=== PATIENT | female | born 1970 | race Two or more races ===

== ENCOUNTER 2016-08-07 18:16 | Inpatient (IN) | payer MEDICAID ==
[~2016-08-07] VITALS: Ht 154.9 cm; Wt 50.8 kg
[2016-08-07 19:45] VITALS: BP 107/55
[2016-08-07] MEDS ORDERED: MEDROXYPROGESTERONE 2.5 MG ORAL ONE (20:00)
[2016-08-07 20:01] LABS: PROTHROMBIN TIME 10.1 SEC (9.30-11.50)
[2016-08-07 20:05] LABS: ALANINE AMINOTRANSFERASE 11 U/L (3-33); ALBUMIN/GLOBULIN RATIO 1.5 (1.0-2.7); ANION GAP 17 (5-15); ASPARTATE AMINO TRANSFERASE 14 U/L (5-40); CALCIUM 8.6 mg/dL (8.6-10.2); CARBON DIOXIDE 22 mEQ/L (20-30); CHLORIDE 98 mEQ/L (98-107); CREATININE 0.4 mg/dL (0.5-0.9); GLOMERULAR FILTRATION RATE > 60 mL/min (>60); HEMOLYSIS 3; POTASSIUM 3.4 mEQ/L (3.4-4.9); SODIUM 137 mEQ/L (135-145); TOTAL PROTEIN 6.9 g/dL (6.6-8.7)
[2016-08-07] MEDS ORDERED: medroxyPROGESTERone 10mg tab ONE (20:15)
[2016-08-07 20:19] LABS: MEAN CORPUSCULAR HEMOGLOBIN 17.4 PG (27.0-31.0); MEAN CORPUSCULAR HGB CONC 29.4 G/DL (32.0-36.0); MEAN CORPUSCULAR VOLUME 59 FL (80-99); MEAN PLATELET VOLUME 6.8 FL (6.5-10.1); PLATELET COUNT 229 K/UL (150-450); RED BLOOD COUNT 2.75 M/UL (4.20-5.40); RED CELL DISTRIBUTION WIDTH 14.4 % (11.6-14.8); WHITE BLOOD COUNT 6.8 K/UL (4.8-10.8)
[2016-08-07] MEDS: medroxyPROGESTERone 10mg tab ORAL SCH (20:53)
[2016-08-07 21:18] LABS: APPEARANCE,URINE SLIGHTLY CLOUDY; KETONES,URINE NEGATIVE (NEGATIVE); LEUKOCYTE ESTERASE ,URINE 2+ (NEGATIVE); NITRITE,URINE NEGATIVE (NEGATIVE); PH,URINE 6 (4.5-8.0); PROTEIN,URINE 3+ (NEGATIVE); UROBILINOGEN,URINE NORMAL MG/DL (0.0-1.0)
[2016-08-07 21:33] LABS: BAND NEUTROPHILS % (MANUAL) 1 % (0-8); EOSINOPHILS % (MANUAL) 3 % (0-3); LYMPHOCYTES % (MANUAL) 20 % (20-45); NEUTROPHILS % (MANUAL) 72 % (45-75); TOTAL CELLS COUNTED 100
[2016-08-07 21:34] LABS: ANISOCYTOSIS 2+; HYPOCHROMASIA 2+
[2016-08-07 21:35] LABS: BASOPHILS % (MANUAL) 0 % (0-2); MICROCYTES 3+; OVALOCYTES 1+; PLATELET ESTIMATE ADEQUATE; PLATELET MORPHOLOGY NORMAL
[2016-08-07] MEDS ORDERED: VITAMIN K100 MC1 PO (21:37)
--- NOTE | 2016-08-07 21:44 | Emergency Room Report ---
History of Present Illness General Chief Complaint: Syncope Source: Patient, EMS Present Illness HPI Patient is a 45-year-old female who presented after having a syncopal episode. Patient reports having recent episodes of heavy vaginal bleeding. She been bleeding for several weeks. Patient had previously been told she had fibroid uterus. She had been taking vitamin K supplementation. She had not been vomiting. She reported feeling somewhat lightheaded. Allergies: Coded Allergies: No Known Allergies (Unverified , 08/07/16) Patient History Past Medical History: see triage record Reviewed Nursing Documentation: PMH: Agreed, PSxH: Agreed Nursing Documentation-PMH Past Medical History: No History, Except For Hx Hypertension: No - POLIO Hx Seizures: Yes Review of Systems All Other Systems: negative except mentioned in HPI Physical Exam Vital Signs Date Time Temp Pulse Resp B/P Pulse Ox O2 Delivery O2 Flow Rate FiO2 08/07/16 18:06 98.1 76 16 123/77 99 Room Air Sp02 EP Interpretation: reviewed, normal General Appearance: normal inspection, well appearing, no apparent distress, alert, GCS 15, non-toxic Head: atraumatic Eyes: bilateral eye conjunctivae pale ENT: normal ENT inspection, hearing grossly normal, normal voice Neck: normal inspection, full range of motion, supple, no bony tend Respiratory: normal inspection, lungs clear, normal breath sounds, no respiratory distress, no retraction, no wheezing Cardiovascular #1: regular rate, rhythm, no edema Gastrointestinal: normal inspection, normal bowel sounds, non tender, soft, no guarding, no hernia Genitourinary: no CVA tenderness, other - moderate vaginal bleeding Musculoskeletal: normal inspection, back normal, normal range of motion Neurologic: normal inspection, alert, oriented x3, responsive, telecommunications engineer III-XII nml as tested, speech normal Psychiatric: normal inspection, judgement/insight normal, mood/affect normal Skin: normal inspection, normal color, no rash, pallor Medical Decision Making Diagnostic Impression: Primary Impression: Syncope Additional Impressions: Anemia Fibroid uterus ER Course Patient presented for syncope. lDifferential diagnosis included but not limited to syncope versus seizure. Potential causes for syncope included arrhythmia, dehydration, acute coronary syndrome, severe anemia, pulmonary embolus. Because of complexity of patient's case laboratory testing and imaging studies were ordered. Laboratory testing was notable for markedly anemia with a hemoglobin of 4.8. The patient noted to have normal coagulation studies. Patient was type and crossed for blood and patient was consented for blood. The pelvic ultrasound was ordered and results are currently pending. test was negative. Dr.Kinishka fox for [facility] was contacted for inpatient management. Labs Test 08/07/16 19:32 08/07/16 20:47 White Blood Count 6.8 K/UL (4.8-10.8) Red Blood Count 2.75 M/UL (4.20-5.40) Hemoglobin 4.8 G/DL (12.0-16.0) Hematocrit 16.3 % (37.0-47.0) Mean Corpuscular Volume 59 FL (80-99) Mean Corpuscular Hemoglobin 17.4 PG (27.0-31.0) Mean Corpuscular Hemoglobin Concent 29.4 G/DL (32.0-36.0) Red Cell Distribution Width 14.4 % (11.6-14.8) Platelet Count 229 K/UL (150-450) Mean Platelet Volume 6.8 FL (6.5-10.1) Neutrophils (%) (Auto) % (45.0-75.0) Lymphocytes (%) (Auto) % (20.0-45.0) Monocytes (%) (Auto) % (1.0-10.0) Eosinophils (%) (Auto) % (0.0-3.0) Basophils (%) (Auto) % (0.0-2.0) Differential Total Cells Counted 100 Neutrophils % (Manual) 72 % (45-75) Lymphocytes % (Manual) 20 % (20-45) Monocytes % (Manual) 4 % (1-10) Eosinophils % (Manual) 3 % (0-3) Basophils % (Manual) 0 % (0-2) Band Neutrophils 1 % (0-8) Platelet Estimate Adequate Platelet Morphology Normal Hypochromasia 2+ Anisocytosis 2+ Microcytosis 3+ Ovalocytes 1+ Prothrombin Time 10.1 SEC (9.30-11.50) Prothromb Time International Ratio 1.0 (0.9-1.1) Activated Partial Thromboplast Time 18 SEC (23-33) Sodium Level 137 mEQ/L (135-145) Potassium Level 3.4 mEQ/L (3.4-4.9) Chloride Level 98 mEQ/L (98-107) Carbon Dioxide Level 22 mEQ/L (20-30) Anion Gap 17 (5-15) Blood Urea Nitrogen 5 mg/dL (7-23) Creatinine 0.4 mg/dL (0.5-0.9) Estimat Glomerular Filtration Rate > 60 mL/min (>60) Glucose Level 116 mg/dL (74-106) Calcium Level 8.6 mg/dL (8.6-10.2) Total Bilirubin 0.3 mg/dL (0.0-1.2) Aspartate Amino Transf (AST/SGOT) 14 U/L (5-40) Alanine Aminotransferase (ALT/SGPT) 11 U/L (3-33) Alkaline Phosphatase 57 U/L (35-104) Total Protein 6.9 g/dL (6.6-8.7) Albumin 4.2 g/dL (3.5-5.2) Globulin 2.7 g/dL Albumin/Globulin Ratio 1.5 (1.0-2.7) Urine Color Red Urine Appearance Slightly cloudy Urine pH 6 (4.5-8.0) Urine Specific [place] 1.010 (1.005-1.035) Urine Protein 3+ (NEGATIVE) Urine Glucose (UA) Negative (NEGATIVE) Urine Ketones Negative (NEGATIVE) Urine Occult Blood 5+ (NEGATIVE) Urine Nitrite Negative (NEGATIVE) Urine Bilirubin Negative (NEGATIVE) Urine Urobilinogen Normal MG/DL (0.0-1.0) Urine Leukocyte Esterase 2+ (NEGATIVE) Urine HCG, Qualitative Negative Last Vital Signs Date Time Temp Pulse Resp B/P Pulse Ox O2 Delivery O2 Flow Rate FiO2 08/07/16 19:45 98.1 72 16 107/55 100 Room Air Status: unchanged Disposition: ADMITTED INPATIENT Condition: Serious Referrals: NOT CHOSEN LIBRA/,REFERRING (PCP) Louie Goff Aug 07, 2016 21:44
[2016-08-07 21:45] VITALS: BP 110/60
[2016-08-07 21:45] LABS: BACTERIA,URINE FEW /HPF; RBC,URINE 60-80 /HPF (0 - 2); SQUAMOUS EPITHELIAL CELL,UR FEW /LPF (NONE/OCC)
[2016-08-07 23:10] VITALS: BP 100/58
[2016-08-08] VITALS (8 sets, daily range): BP systolic 93–118; BP diastolic 49–72
[2016-08-08] MEDS ORDERED: Norco 5mg/325mg tab ORAL PRN (05:45)
[2016-08-08] MEDS ORDERED: Norco 10mg/325mg tab ORAL PRN (05:45)
[2016-08-08] MEDS: medroxyPROGESTERone 10mg tab ORAL SCH (09:00)
[2016-08-08 10:10] LABS: MEAN CORPUSCULAR HEMOGLOBIN 20.6 PG (27.0-31.0); MEAN CORPUSCULAR HGB CONC 30.8 G/DL (32.0-36.0); MEAN CORPUSCULAR VOLUME 67 FL (80-99); MEAN PLATELET VOLUME 7.3 FL (6.5-10.1); PLATELET COUNT 253 K/UL (150-450); RED BLOOD COUNT 3.65 M/UL (4.20-5.40); RED CELL DISTRIBUTION WIDTH 21.9 % (11.6-14.8)
--- NOTE | 2016-08-08 10:20 | Diagnostic Imaging Report ---
Indication: Pelvic pain and weakness. Negative urine test Technique: Transabdominal and transvaginal images Comparison: None Findings: Uterus is retroverted. It measures 11.8 cm length by 5.1 cm AP. Endometrium is thickened, measuring 17 mm. Considerable fluid is seen within the lower endometrium and especially endocervical canal, with some associated debris. Multiple uterine fibroids are noted, including a fibroid within the lower uterine segment or cervix. The left ovary measures 2.9 cm in length. It contains multiple large follicles. The right ovary measures 2.1 cm in length. There is trace free cul-de-sac fluid. Impression: Uterine fibroids Considerable debris and fluid within the lower uterine endometrium and endocervical canal, nonspecific, could represent old blood given stated clinical history of bleeding Thickened endometrium, nonspecific. Free pelvic fluid, presumed physiologic Prominent left ovarian follicles. Negative for adnexal mass
[2016-08-08 10:26] LABS: ANION GAP 13 (5-15); CALCIUM 8.4 mg/dL (8.6-10.2); CARBON DIOXIDE 24 mEQ/L (20-30); CHLORIDE 103 mEQ/L (98-107); CREATININE 0.4 mg/dL (0.5-0.9); GLOMERULAR FILTRATION RATE > 60 mL/min (>60); HEMOLYSIS 2; POTASSIUM 3.3 mEQ/L (3.4-4.9); SODIUM 140 mEQ/L (135-145)
[2016-08-08 10:50] LABS: ANISOCYTOSIS 3+; BAND NEUTROPHILS % (MANUAL) 0 % (0-8); BASOPHILS % (MANUAL) 1 % (0-2); EOSINOPHILS % (MANUAL) 4 % (0-3); HYPOCHROMASIA 3+; LYMPHOCYTES % (MANUAL) 31 % (20-45); NEUTROPHILS % (MANUAL) 57 % (45-75); PLATELET ESTIMATE ADEQUATE; TOTAL CELLS COUNTED 100
[2016-08-08 10:51] LABS: MICROCYTES 3+; PLATELET MORPHOLOGY NORMAL; POIKILOCYTOSIS 1+
[2016-08-08] MEDS ORDERED: KCl 10% 40mEq/30ml liquid ORAL ONE (13:00)
--- NOTE | 2016-08-08 15:07 | History and Physical ---
History of Present Illness General Date patient seen: Aug 08, 2016 Time patient seen: 15:07 Reason for Hospitalization: Vaginal bleeding, syncope Present Illness HPI 45y/o female with no sig pmh who presents with vaginal bleeding and syncope. Patient reports having recent episodes of heavy vaginal bleeding. She been bleeding for several weeks. Patient had previously been told she had fibroid uterus. She had been taking vitamin K supplementation. She had not been vomiting. She reported feeling somewhat lightheaded. Denies f/c, n/v, d/c, chest pain, SOB. In ED, pt with hgb 4.8. Given 2U pRBCs. Software Development Coordinator consulted. Pt started on Provera. Allergies: Coded Allergies: No Known Allergies (Unverified , 08/07/16) Medication History Discontinued Medications Phytonadione (Vitamin K), 100 MCG PO, (Reported) Discontinued Reason: Therapy completed Patient History Healthcare decision maker Resuscitation status Full Code Advanced Directive on File No Family History Family History: Patient reports no known family medical history. Social History Social History: (1) No significant social history Review of Systems ROS Narrative CONSTITUTIONAL: No weight loss, fever, chills, weakness or fatigue. HEENT: Eyes: No visual loss, blurred vision, double vision or yellow sclerae. Ears, Nose, Throat: No hearing loss, sneezing, congestion, runny nose or sore throat. SKIN: No rash or itching. CARDIOVASCULAR: No chest pain, chest pressure or chest discomfort. No palpitations or edema. RESPIRATORY: No shortness of breath, cough or sputum. GASTROINTESTINAL: No anorexia, nausea, vomiting or diarrhea. No abdominal pain or blood. NEUROLOGICAL: No headache, paralysis, ataxia, numbness or tingling in the extremities. No change in bowel or bladder control. +dizziness, +syncope MUSCULOSKELETAL: No muscle, back pain, joint pain or stiffness. HEMATOLOGIC: No anemia, bleeding or bruising. LYMPHATICS: No enlarged nodes. No history of splenectomy. PSYCHIATRIC: No history of depression or anxiety. ENDOCRINOLOGIC: No reports of sweating, cold or heat intolerance. No polyuria or polydipsia. ALLERGIES: No history of asthma, hives, eczema or rhinitis. Physical Exam Physical Exam Narrative General: alert, cooperative, no distress, appears stated age Head: normocephalic, without obvious abnormality, atraumatic Eyes: conjunctivae/corneas clear. PERRL, EOM's intact Throat: lips, mucosa, and tongue normal. MMM Neck: supple, symmetrical, trachea midline, and no JVD Lungs: clear to auscultation bilaterally Heart: regular rate and rhythm, S1, S2 normal, no murmur, click, rub or gallop Abdomen: soft, non-tender, non-distended, bowel sounds normal; no masses or organomegaly Extremities: extremities normal, atraumatic, no cyanosis or edema Pulses: 2+ and symmetric Skin: skin color, texture, turgor normal; no rashes or lesions Neurologic: grossly normal, no focal deficits Last 24 Hour Vital Signs Date Time Temp Pulse Resp B/P Pulse Ox O2 Delivery O2 Flow Rate FiO2 08/08/16 12:00 63 08/08/16 08:00 62 08/08/16 08:00 97.3 61 21 93/58 100 Room Air 08/08/16 04:15 98.2 63 18 105/68 99 Room Air 08/08/16 03:50 57 08/08/16 02:34 66 08/08/16 02:30 97.2 66 18 118/72 100 Room Air 08/08/16 02:09 98.3 68 15 99/49 100 Room Air 08/08/16 01:55 98.3 68 15 08/08/16 01:40 98.3 68 15 99/49 100 Room Air 08/08/16 01:10 98.6 68 14 105/57 99 Room Air 08/08/16 01:10 98.6 68 14 08/08/16 00:55 98.4 70 12 08/08/16 00:55 98.4 70 12 109/58 100 Room Air 08/08/16 00:30 98.3 73 16 08/07/16 23:45 98.2 70 14 08/07/16 23:10 98.4 71 17 100/58 100 Room Air 08/07/16 22:40 98.4 74 12 08/07/16 22:25 98.4 73 15 08/07/16 21:45 98.4 73 15 110/60 100 Room Air 08/07/16 19:45 98.1 72 16 107/55 100 Room Air 08/07/16 18:06 98.1 76 16 123/77 99 Room Air Intake and Output 08/07/16 08/08/16 19:00 07:00 Intake Total 500 ml Output Total 750 ml Balance -250 ml Blood Product 500 ml Output Urine Total 750 ml # Voids 2 Laboratory Tests Test 08/07/16 19:32 08/07/16 20:47 08/08/16 09:40 White Blood Count 6.8 K/UL (4.8-10.8) 6.0 K/UL (4.8-10.8) Red Blood Count 2.75 M/UL (4.20-5.40) L 3.65 M/UL (4.20-5.40) L Hemoglobin 4.8 G/DL (12.0-16.0) *L 7.5 G/DL (12.0-16.0) #L Hematocrit 16.3 % (37.0-47.0) L 24.4 % (37.0-47.0) #L Mean Corpuscular Volume 59 FL (80-99) L 67 FL (80-99) #L Mean Corpuscular Hemoglobin 17.4 PG (27.0-31.0) L 20.6 PG (27.0-31.0) L Mean Corpuscular Hemoglobin Concent 29.4 G/DL (32.0-36.0) L 30.8 G/DL (32.0-36.0) L Red Cell Distribution Width 14.4 % (11.6-14.8) 21.9 % (11.6-14.8) H Platelet Count 229 K/UL (150-450) 253 K/UL (150-450) Mean Platelet Volume 6.8 FL (6.5-10.1) 7.3 FL (6.5-10.1) Neutrophils (%) (Auto) % (45.0-75.0) % (45.0-75.0) Lymphocytes (%) (Auto) % (20.0-45.0) % (20.0-45.0) Monocytes (%) (Auto) % (1.0-10.0) % (1.0-10.0) Eosinophils (%) (Auto) % (0.0-3.0) % (0.0-3.0) Basophils (%) (Auto) % (0.0-2.0) % (0.0-2.0) Differential Total Cells Counted 100 100 Neutrophils % (Manual) 72 % (45-75) 57 % (45-75) Lymphocytes % (Manual) 20 % (20-45) 31 % (20-45) Monocytes % (Manual) 4 % (1-10) 7 % (1-10) Eosinophils % (Manual) 3 % (0-3) 4 % (0-3) H Basophils % (Manual) 0 % (0-2) 1 % (0-2) Band Neutrophils 1 % (0-8) 0 % (0-8) Platelet Estimate Adequate Adequate Platelet Morphology Normal Normal Hypochromasia 2+ 3+ Anisocytosis 2+ 3+ Microcytosis 3+ 3+ Ovalocytes 1+ Prothrombin Time 10.1 SEC (9.30-11.50) Prothromb Time International Ratio 1.0 (0.9-1.1) Activated Partial Thromboplast Time 18 SEC (23-33) L Sodium Level 137 mEQ/L (135-145) 140 mEQ/L (135-145) Potassium Level 3.4 mEQ/L (3.4-4.9) 3.3 mEQ/L (3.4-4.9) L Chloride Level 98 mEQ/L (98-107) 103 mEQ/L (98-107) Carbon Dioxide Level 22 mEQ/L (20-30) 24 mEQ/L (20-30) Anion Gap 17 (5-15) H 13 (5-15) Blood Urea Nitrogen 5 mg/dL (7-23) L 3 mg/dL (7-23) L Creatinine 0.4 mg/dL (0.5-0.9) L 0.4 mg/dL (0.5-0.9) L Estimat Glomerular Filtration Rate > 60 mL/min (>60) > 60 mL/min (>60) Glucose Level 116 mg/dL (74-106) H 125 mg/dL (74-106) H Calcium Level 8.6 mg/dL (8.6-10.2) 8.4 mg/dL (8.6-10.2) L Total Bilirubin 0.3 mg/dL (0.0-1.2) Aspartate Amino Transf (AST/SGOT) 14 U/L (5-40) Alanine Aminotransferase (ALT/SGPT) 11 U/L (3-33) Alkaline Phosphatase 57 U/L (35-104) Total Protein 6.9 g/dL (6.6-8.7) Albumin 4.2 g/dL (3.5-5.2) Globulin 2.7 g/dL Albumin/Globulin Ratio 1.5 (1.0-2.7) Urine Color Red Urine Appearance Slightly cloudy Urine pH 6 (4.5-8.0) Urine Specific [place] 1.010 (1.005-1.035) Urine Protein 3+ (NEGATIVE) H Urine Glucose (UA) Negative (NEGATIVE) Urine Ketones Negative (NEGATIVE) Urine Occult Blood 5+ (NEGATIVE) H Urine Nitrite Negative (NEGATIVE) Urine Bilirubin Negative (NEGATIVE) Urine Urobilinogen Normal MG/DL (0.0-1.0) Urine Leukocyte Esterase 2+ (NEGATIVE) H Urine RBC 60-80 /HPF (0 - 2) H Urine WBC 5-10 /HPF (0 - 2) H Urine Squamous Epithelial Cells Few /LPF (NONE/OCC) Urine Bacteria Few /HPF (NONE) Urine HCG, Qualitative Negative Poikilocytosis 1+ Height (Feet): 5 Height (Inches): 1.00 Weight (Pounds): 112 Medications Current Medications Medications (Trade) Dose Ordered Sig/René Route PRN Reason Start Time Stop Time Status Last Admin Dose Admin Acetaminophen (Tylenol) 650 mg Q6H PRN ORAL Mild Pain/Temp > 100.5 08/08/16 05:45 09/07/16 05:44 Acetaminophen/ Hydrocodone Bitart ([place] 10/325) 1 ea Q4H PRN ORAL Severe Pain (Pain Scale 7-10) 08/08/16 05:45 08/15/16 05:44 Acetaminophen/ Hydrocodone Bitart ([place] 5/325) 1 tab Q4H PRN ORAL Moderate Pain (Pain Scale 4-6) 08/08/16 05:45 08/15/16 05:44 Dextrose (Dextrose 50%) STAT PRN IV Hypoglycemia 08/08/16 05:45 09/07/16 05:44 Medroxyprogesterone Acetate (Provera) 10 mg DAILY ORAL 08/07/16 20:15 09/06/16 20:14 08/08/16 09:00 Assessment/Plan Problem List: (1) Acute blood loss anemia ICD Codes: D62 - Acute posthemorrhagic anemia SNOMED: 772979761 (2) Vagina bleeding ICD Codes: N93.9 - Abnormal uterine and vaginal bleeding, unspecified SNOMED: 147839454, 747288823 (3) Uterine fibroid ICD Codes: D25.9 - Leiomyoma of uterus, unspecified SNOMED: 24019649 Status: stable Assessment/Plan Admit inpt Software Development Coordinator consulted in ED Started on Provera x 10d s/p 2U pRBCs w/ good response Trend CBC Check Fe panel, ferritin Consider Fannie Caballero M.D. Aug 08, 2016 15:07
[2016-08-08] MEDS ORDERED: MEDROXYPROGESTER5 MG ORAL (15:28)
--- NOTE | 2016-08-08 15:29 | Discharge Instructions ---
Discharge Instructions Discharge Instructions Follow up with: Gynecology in 1 week Call MD/Return to Hospital if: increasing bleeding, dizziness, chest pain, SOB Diet: regular Resume Normal Activity?: Yes Activity: resume normal activities For Congestive Heart Failure Reminder Report to your physician any weight gain of 5 pounds or more in one week. Fannie Cabral M.D. Aug 08, 2016 15:29
[2016-08-08 18:17] LABS: MEAN CORPUSCULAR HEMOGLOBIN 20.3 PG (27.0-31.0); MEAN CORPUSCULAR HGB CONC 30.3 G/DL (32.0-36.0); MEAN CORPUSCULAR VOLUME 67 FL (80-99); MEAN PLATELET VOLUME 7.7 FL (6.5-10.1); PLATELET COUNT 242 K/UL (150-450); RED BLOOD COUNT 3.57 M/UL (4.20-5.40); RED CELL DISTRIBUTION WIDTH 21.2 % (11.6-14.8); WHITE BLOOD COUNT 6.4 K/UL (4.8-10.8)
[2016-08-08 18:31] LABS: HEMOLYSIS 2; IRON 18 ug/dL (37-145); TOTAL IRON BINDING CAPACITY 338 ug/dL (250-400)
[2016-08-08 18:41] LABS: FERRITIN 11 ng/mL (13-150)
[2016-08-08 19:18] LABS: EOSINOPHILS % (MANUAL) 4 % (0-3); LYMPHOCYTES % (MANUAL) 42 % (20-45); NEUTROPHILS % (MANUAL) 52 % (45-75); TOTAL CELLS COUNTED 100
[2016-08-08 19:19] LABS: BAND NEUTROPHILS % (MANUAL) 0 % (0-8); BASOPHILS % (MANUAL) 0 % (0-2); PLATELET ESTIMATE ADEQUATE; PLATELET MORPHOLOGY NORMAL
[2016-08-08 19:24] LABS: MICROCYTES 3+
[2016-08-08] MEDS ORDERED: Iron Sucrose 200 MG in NS 110 ML IVPB ONE (22:30)
[2016-08-09] VITALS: BP 99/50
[2016-08-09 04:00] VITALS: BP 103/56
[2016-08-09] MEDS ORDERED: FERROUS SULFAT325 MG ORAL (04:19)
[2016-08-09 05:04] LABS: MEAN CORPUSCULAR HEMOGLOBIN 20.3 PG (27.0-31.0); MEAN CORPUSCULAR HGB CONC 30.7 G/DL (32.0-36.0); MEAN CORPUSCULAR VOLUME 66 FL (80-99); MEAN PLATELET VOLUME 7.4 FL (6.5-10.1); PLATELET COUNT 269 K/UL (150-450); RED BLOOD COUNT 3.63 M/UL (4.20-5.40); RED CELL DISTRIBUTION WIDTH 21.8 % (11.6-14.8); WHITE BLOOD COUNT 6.6 K/UL (4.8-10.8)
[2016-08-09 05:38] LABS: ANION GAP 16 (5-15); CALCIUM 8.5 mg/dL (8.6-10.2); CARBON DIOXIDE 22 mEQ/L (20-30); CHLORIDE 99 mEQ/L (98-107); CREATININE 0.4 mg/dL (0.5-0.9); GLOMERULAR FILTRATION RATE > 60 mL/min (>60); HEMOLYSIS 0; MAGNESIUM 2.1 mg/dL (1.7-2.5); SODIUM 137 mEQ/L (135-145)
[2016-08-09 08:00] VITALS: BP 101/56
[2016-08-09] MEDS: medroxyPROGESTERone 10mg tab ORAL SCH (08:52)
[2016-08-09] MEDS ORDERED: Iron Sucrose 200 MG in NS 110 ML IVPB ONE (09:00)
[2016-08-09 10:33] LABS: ANISOCYTOSIS 2+; BAND NEUTROPHILS % (MANUAL) 1 % (0-8); BASOPHILS % (MANUAL) 0 % (0-2); EOSINOPHILS % (MANUAL) 1 % (0-3); HYPOCHROMASIA 1+; LYMPHOCYTES % (MANUAL) 39 % (20-45); MICROCYTES 2+; NEUTROPHILS % (MANUAL) 54 % (45-75); PLATELET ESTIMATE ADEQUATE; PLATELET MORPHOLOGY NORMAL; TOTAL CELLS COUNTED 100
[2016-08-09 12:00] VITALS: BP 104/64
[2016-08-09 14:09] LABS: OTHERS PATHOLOGIST COMMENT
--- NOTE | 2016-08-09 18:18 | Consultation ---
DATE OF CONSULTATION: 08/08/2016 CONSULTING PHYSICIAN: Claude Yanez M.D. HISTORY OF PRESENT ILLNESS: This is a 45-year-old female who is 2, para 2, who presented to emergency room at [facility] complaining of history of heavy vaginal bleeding with clot formation. The patient admits to having this for approximately two months in duration. The patient was noted to have low hemoglobin of approximately 4.3 grams. The patient denies any prior history of fibroid uterus. The patient has not seen a conference concierge for a long time. PAST MEDICAL HISTORY: Noncontributory. PAST SURGICAL HISTORY: Dilation and curettage according to the patient 10 years ago and breast biopsy . ALLERGIES: The patient has no known drug allergies. OBSTETRICAL HISTORY: The patient had two normal spontaneous vaginal deliveries. GYNECOLOGICAL HISTORY: As above. PHYSICAL EXAMINATION: VITAL SIGNS: Stable. GENERAL: The patient is noted to be slightly pale. CHEST: Clear to auscultation. ABDOMEN: Soft. PELVIC: The patient declined pelvic examination. The patient admits to having very minimal bleeding at this time. EXTREMITIES: No cyanosis, edema, or clubbing. LABORATORY DATA: The patient is status post 2 units of blood transfusion. Her hemoglobin at this time is 7.9 grams. Ultrasound revealed multiple myomas; however the dimensions are not given. There is slight thickened endometrium. ASSESSMENT: 1. History of menometrorrhagia. 2. History of anemia. 3. History of fibroid uterus according to ultrasound. 4. Status post blood transfusion. At this time, the patient has no active bleeding. PLAN: The patient was spoken at length about the need to be followed up with the conference concierge for endometrial biopsy as well as Pap smear and further management decision. . The patient states that she will follow up in for the above management. I thank you for this consultation. Claude Yanez M.D. DR: EVERTON JOB#: [id number] CC:
--- NOTE | 2016-08-12 09:39 | Discharge Summary ---
Discharge Summary Hospital Course Date of Admission Aug 07, 2016 at 21:36 Date of Discharge Aug 09, 2016 at 14:00 Admitting Diagnosis anemia , syncope HPI Jocelyn Rainey is a 45 year old female who was admitted on Aug 07, 2016 at 21:36 for Anemia,Syncope Hospital Course dc summary #[id number] Discharge Medications New Medications: Ferrous Sulfate* (Ferrous Sulfate*) 325 Mg Tablet 325 MG ORAL TWICE A DAY, #60 TAB 0 Refills Medroxyprogesterone Acetate (Medroxyprogesterone Acetate) 5 Mg Tablet 10 MG ORAL DAILY for 10 Days, TAB Discharge Condition Upon Discharge: improving, stable Discharge Disposition Patient was discharged to Home () Discharge Diagnoses: Discharge Instructions Discharge Instructions Follow up with: Gynecology in 1 week Call MD/Return to Hospital if: increasing bleeding, dizziness, chest pain, SOB Activity: resume normal activities Special Instructions I have been assigned to complete a D/C Summary on this account. I was not involved in the patient management Jossy Curtis NP (Vanchtein) Aug 12, 2016 09:39
[2016-08-12 11:16] LABS: OTHERS PATHOLOGIST COMMENT
--- NOTE | 2016-08-13 03:59 | Discharge Summary 2 SIG ---
DATE OF ADMISSION: 08/07/2016 DATE OF DISCHARGE: 08/09/2016 REASON FOR ADMISSION: 45-year-old female, presented with syncopal episode and vaginal bleeding. Workup in the emergency room revealed hemoglobin of 4.8 and hematocrit 16.3. The patient with a recent episode of heavy vaginal bleeding . Patient also reported to have a fibroid uterus. The patient had been taking vitamin D supplementation. No nausea. No vomiting. No abdominal pain. No fever. No chills. No chest pain. No shortness of breath. She reported feeling lightheaded. The patient was seen by SCIENTOLOGIST in the ED and admitted to the hospital for further management and blood transfusion. ADMITTING DIAGNOSES: Include, 1. Syncopal episode. 2. Acute blood loss anemia. 3. Vaginal bleeding. 4. Fibroid uterus. HOSPITAL STAY: The patient was admitted to Med/Surg floor. The patient undergone transfusion of two units of packed red blood cells. Hemoglobin up to 7.4 and hematocrit 24.1. The patient was started on Provera for 10 days. SCIENTOLOGIST seen the patient. At that time, there was no active bleeding. He recommended to follow up as outpatient. Pelvic ultrasound was reviewed by SCIENTOLOGIST. According to pelvic ultrasound, the patient had: 1?Thickened endometrium. Free pelvic fluid likely physiological. Considerable debris and fluid within the lower uterine endometrium and endocervical canal, nonspecific, possibly representing old blood given history of bleeding. 2/. Uterine fibroids. 3/. Prominent left ovarian follicles. Negative for adnexal mass. Urine test was negative. SCIENTOLOGIST recommended outpatient followup for endometrial biopsy, Pap smear, and decision for further management of menometrorrhagia as well as the fibroid uterus. Anemia workup revealed iron deficiency anemia. The patient was started on the IV iron while in the hospital and upon discharge prescribed oral iron supplement. The patient was stable for discharge with outpatient followup with SCIENTOLOGIST. Urinalysis was negative for any evidence of infection. DISCHARGE DIAGNOSES: 1. Syncopal episode due to acute symptomatic anemia. 2. Acute blood loss anemia. 3. Status post blood transfusion. 4. Menometrorrhagia. 5. Fibroid uterus. DISCHARGE MEDICATIONS: See medication reconciliation list. The patient was discharged on Provera and oral iron supplement. DISCHARGE INSTRUCTIONS: The patient to follow up with SCIENTOLOGIST as outpatient. Rambo Lagunas M.D. I have been assigned to dictate discharge summary on this account and I was not involved in the patient's management. Jossy Woodalllouise NGabrielPGabriel DR: TIO JOB#: [id number] CC: ELLA
--- NOTE | 2016-08-13 11:48 | Cardiology Report ---
APPROVED REPORT EKG Measurement Heart [id number] OR [id number] [id number] Normal sinus rhythm Normal ECG
== END 2016-08-09 14:00 | disposition home or self-care (01) | DRG 663 ==
LOC: EDBD 18:16 → EMR 21:35 → 2E 21:36 → EDBEDREQ 08-08 01:23 → EMR 08-08 02:10 → 2W 08-08 03:02
DX: D62 Acute posthemorrhagic anemia (principal); R55 Syncope and collapse; D25.9 Leiomyoma of uterus, unspecified; N92.1 Excessive and frequent menstruation with irregular cycle
CPT/HCPCS: 36415; 76856; 80048; 80053; 81001; 81025; 82728; 83540; 83550; 83735; 85007; 85025; 85610; 85730; 86850; 86900; 86901; 86920; 93005